=== PATIENT | female | born 1980 | race Caucasian/White ===

== ENCOUNTER → 2021-01-02 | Outpatient (CLI) | payer OTHER ==
[~2021-01-02] MED LIST: FEOSOL325 MG PO; OMEPRAZOLE40 MG PO; PRAMET FA TAB1 EA PO; REGLAN10 MG PO; SLEEP AID25 M1 PO; SYNTHROID150 MCG PO; SYNTHROID200 MCG PO; VITAMIN B-6100 MG PO
== END ==
LOC: MAMO 13:00
DX: Z12.31 Encounter for screening mammogram for malignant neoplasm of breast (principal)
CPT/HCPCS: 77063; 77067

== ENCOUNTER → 2021-01-16 | Outpatient (CLI) | payer OTHER ==
[2021-01-17 10:14] LABS: HBSAG SCREEN Negative (Negative)
[2021-01-17 11:14] LABS: RHEUMATOID ARTHRITIS FACTOR <10.0 IU/mL (0.0-13.9)
[2021-01-18 07:11] LABS: HEP B CORE AB, TOT Negative (Negative)
[2021-01-18 08:14] LABS: HCV AB <0.1 (0.0-0.9)
[2021-01-19 17:11] LABS: QUANTIFERON MITOGEN VALUE >10.00 IU/mL (.); QUANTIFERON-TB GOLD PLUS Negative (Negative)
[2021-01-21 00:11] LABS: CCP ANTIBODIES IGG/IGA 8 units (0-19)
== END ==
LOC: LAB 14:32
PROVIDERS: Nurse Practitioner Family
DX: Z11.59 Encounter for screening for other viral diseases (principal); M79.641 Pain in right hand; M79.642 Pain in left hand; M15.4 Erosive (osteo)arthritis; M25.562 Pain in left knee
CPT/HCPCS: 36415; 73130; 73562; 82550; 83520; 86200; 86431; 86704; 86803; 87340